=== PATIENT | female | born 1995 | race Caucasian/White ===

== ENCOUNTER 2018-07-28 11:25 | Emergency (ER) | payer OTHER ==
[~2018-07-28] VITALS: Ht 154.9 cm; Wt 48.5 kg
[2018-07-28 11:27] VITALS: BP 131/87
== END 2018-07-28 12:38 | disposition home or self-care (01) ==
LOC: ED 12:32
DX: S06.0X0A Concussion without loss of consciousness, initial encounter (principal); M54.2 Cervicalgia; R11.0 Nausea; V49.09XA Driver injured in collision with other motor vehicles in nontraffic accident, initial encounter; Y93.89 Activity, other specified; Y92.89 Other specified places as the place of occurrence of the external cause; Y99.8 Other external cause status
CPT/HCPCS: 70450; 99284